=== PATIENT | female | born 1990 | race Caucasian/White ===

== ENCOUNTER 2019-11-13 03:50 | Emergency (ER) | payer MEDICAID ==
[2019-11-13] MEDS ORDERED: Diphtheria,Pertussis(Acell),Tetanus Vaccine 0.5 ML SDV IM ONE (04:01)
[2019-11-13] MEDS ORDERED: HYDROmorphone 1 MG/ML Syringe IM ONE ×2 (04:02→04:33)
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
[2019-11-13] MEDS ORDERED: Silver Sulfadiazine 1% Crm 50 GM Tube TOP ONE (04:33)
== END 2019-11-13 05:18 | disposition home or self-care (01) ==
LOC: JP.ED 03:50
DX: T22.211A Burn of second degree of right forearm, initial encounter (principal); T23.251A Burn of second degree of right palm, initial encounter; Z23 Encounter for immunization; Z88.8 Allergy status to other drugs, medicaments and biological substances
CPT/HCPCS: 16020; 90471; 90715; 96372; 99283; A9270; J1170

== ENCOUNTER 2020-03-09 18:29 | Emergency (ER) | payer MEDICAID ==
[2020-03-09] MEDS ORDERED: Bacitracin Oint 1 GM U/D Packet TOP ONE (19:05)
[2020-03-09] MEDS ORDERED: Lidocaine 1% with EPINEPHrine 1:100,000 50 ML MDV SUBCUT STA (19:05)
[2020-03-09] MEDS ORDERED: Ketorolac 60 MG/2 ML SDV IM ONE (19:08)
[2020-03-09] MEDS ORDERED: LORazepam 2 MG/ML SDV IM ONE ×2 (19:08→20:50)
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
[2020-03-09] MEDS ORDERED: Acetaminophen 325 MG Tab PO ONE (19:18)
--- NOTE | 2020-03-09 20:12 | CRLCR ---
Indication: Injury and pain Technique: Right wrist 3 views Comparison: None Findings/Impression: Bones: Alignment is normal. No fractures or bone lesions. Joint spaces: Unremarkable. Soft tissues: Anterior superficial soft tissue injury is in the distal forearm. No foreign body. Dictated by Jim Lechuga MD @ 03/09/2020 8:11:29 PM Dictated by: Jim Lechuga MD @ 03/09/2020 20:11:39 (Electronically Signed)
[2020-03-09] MEDS ORDERED: diphenhydrAMINE 50 MG/ML SDV IM ONE (20:49)
[2020-03-09] MEDS ORDERED: Haloperidol Lactate 5 MG/ML SDV IM ONE (20:49)
[2020-03-09] MEDS ORDERED: OLANZapine 10 MG Vial IM ONE (21:10)
[2020-03-09] MEDS ORDERED: Ketamine 500 MG/5 ML MDV IM ONE (21:11)
[2020-03-09] MEDS ORDERED: Sodium Chloride 0.9% 10 ML Syringe FLUSH PRN (21:34)
[2020-03-09] MEDS ORDERED: Sodium Chloride 0.9% 1,000 ML IV SCH (21:45)
[2020-03-10] MEDS ORDERED: lamoTRIgine 100 MG Tab PO ONE (18:11)
[2020-03-10] MEDS ORDERED: Sertraline 50 MG Tab PO ONE (18:11)
[2020-03-10] MEDS ORDERED: Acetaminophen 1,000 MG in Premix Bag 1 BAG IV ONE (19:30)
== END 2020-03-11 09:49 | disposition home or self-care (01) ==
LOC: JP.ED 18:29
DX: S61.511A Laceration without foreign body of right wrist, initial encounter (principal); S61.512A Laceration without foreign body of left wrist, initial encounter; F41.9 Anxiety disorder, unspecified; F31.9 Bipolar disorder, unspecified; Z88.6 Allergy status to analgesic agent; Z88.8 Allergy status to other drugs, medicaments and biological substances; Z90.49 Acquired absence of other specified parts of digestive tract; Z79.899 Other long term (current) drug therapy; W26.9XXA Contact with unspecified sharp object(s), initial encounter
CPT/HCPCS: 12002; 36415; 73110; 80053; 80307; 84443; 85025; 96372; 99283; J2060; 80175; 80305-QW; 81001; 81025; J1200; J1630